=== PATIENT | male | born 2000 | race Caucasian/White ===

== ENCOUNTER 2024-04-06 22:54 | Emergency (ER) | payer BC ==
[2024-04-07] MEDS ORDERED: Amoxicillin/Potassium Clav 875 MG TAB ONE (00:33)
[2024-04-07] MEDS ORDERED: predniSONE 20 MG TAB ONE (00:33)
[2024-04-07] MEDS ORDERED: Ibuprofen 800 MG TAB ONE (00:33)
== END 2024-04-07 00:45 | disposition home or self-care (01) ==
LOC: ERS 22:54
DX: J03.90 Acute tonsillitis, unspecified (principal)
CPT/HCPCS: 87081; 87430; 99283; J7512